=== PATIENT | female | born 1975 | race African-American/Black ===

== ENCOUNTER 2023-02-26 11:26 | Emergency (ER) | payer BC ==
[~2023-02-26] VITALS: Ht 157.5 cm; Wt 82.0 kg
[2023-02-26 12:12] LABS: BASOPHILS % 0.4 % (0.0-2.0); EOSINOPHILS % 2.5 % (0.0-5.0); HEMATOCRIT. 43.4 % (36.0-48.0); HEMOGLOBIN. 14.8 g/dL (12.0-16.0); LYMPHOCYTES % 24.4 % (20.0-50.0); MEAN CORPUSCULAR HEMOGLOBIN 29.3 pg (28.0-32.0); MEAN CORPUSCULAR VOLUME 86.1 fL (81.0-99.0); MEAN PLATELET VOLUME 7.1 fl (7.4-10.4); MONOCYTES % 7.4 % (2.0-8.0); NEUTROPHILS % 65.3 % (40.0-76.0); PLATELET 308 x1000/uL (130-400); RED BLOOD CELL COUNT 5.04 mill/uL (4.2-5.4)
[2023-02-26 12:24] LABS: CHLORIDE 107 mEq/L (98-107)
[2023-02-26 13:43] LABS: CLARITY URINE CLOUDY (CLEAR); COLOR URINE DARK YELLOW (YELLOW); KETONES URINE 3+ (NEGATIVE); LEUKOCYTE ESTERASE URINE NEGATIVE (NEGATIVE); NITRITE URINE NEGATIVE (NEGATIVE); OCCULT BLOOD URINE 1+ (NEGATIVE); PROTEIN URINE TRACE (NEGATIVE); SPECIFIC GRAVITY URINE 1.033 (1.005-1.030)
[2023-02-26] MEDS ORDERED: ONDANSETRON 4MG ODT PO ONE (15:30)
[2023-02-26] MEDS ORDERED: KETOROLAC 30MG/ML VIAL IM ONE (15:30)
[2023-02-26 16:10] VITALS: BP 130/88
== END 2023-02-26 16:17 | disposition home or self-care (01) ==
LOC: ER 11:26
DX: F41.9 Anxiety disorder, unspecified (principal); Z90.710 Acquired absence of both cervix and uterus
CPT/HCPCS: 36415; 71045; 80053; 81003; 84484; 85025; 93005; 96372; 99285; J1885; Q0162

== ENCOUNTER 2025-09-03 09:26 | Emergency (ER) | payer BC, OTHER ==
[~2025-09-03] VITALS: Ht 165.1 cm; Wt 85.0 kg
[2025-09-03 09:29] VITALS: O2SAT 98
[2025-09-03 10:28] VITALS: BP 140/93; PULSE 71; RESP 18; TEMP 36.9; O2SAT 99
[2025-09-03 10:38] LABS: BASOPHILS % 0.9 % (0.0-2.0); EOSINOPHILS % 9.5 % (0.0-5.0); HEMATOCRIT. 38.6 % (36.0-48.0); HEMOGLOBIN. 12.8 g/dL (12.0-16.0); LYMPHOCYTES % 40.0 % (20.0-50.0); MEAN PLATELET VOLUME 7.2 fl (7.4-10.4); MONOCYTES % 6.8 % (2.0-8.0); NEUTROPHILS % 42.8 % (40.0-76.0); PLATELET 286 x1000/uL (130-400); RED BLOOD CELL COUNT 4.51 mill/uL (4.2-5.4); RED CELL DISTRIBUTION WIDTH 15.1 % (11.6-14.6)
[2025-09-03 10:57] LABS: HCG SCREEN NEGATIVE
[2025-09-03 10:58] LABS: CREATININE 0.9 mg/dL (0.6-1.0); UREA NITROGEN BLOOD 12 mg/dL (9-23)
[2025-09-03 10:59] LABS: TROPONIN I HIGH SENSITIVITY < 4 ng/L (3.0-34)
== END 2025-09-03 12:18 | disposition left against medical advice (07) ==
LOC: ER 09:39
DX: R05.9 Cough, unspecified (principal); R06.02 Shortness of breath; R09.81 Nasal congestion; Z55.6 Problems related to health literacy; Z90.710 Acquired absence of both cervix and uterus; Z20.822 Contact with and (suspected) exposure to COVID-19
CPT/HCPCS: 36415; 71045; 80048; 81025; 84484; 84703; 85025; 93005; 99285